=== PATIENT | female | born 1985 | race Caucasian/White ===

== ENCOUNTER 2023-03-05 09:04 | Emergency (ER) | payer OTHER ==
[2023-03-05] MEDS ORDERED: predniSONE 20 MG TAB ONE (09:32)
== END 2023-03-05 09:40 | disposition home or self-care (01) ==
LOC: NAV ERS 09:04
DX: B37.0 Candidal stomatitis (principal); R21 Rash and other nonspecific skin eruption; M79.7 Fibromyalgia; M19.90 Unspecified osteoarthritis, unspecified site; Z79.899 Other long term (current) drug therapy
CPT/HCPCS: 99282; J7512

== ENCOUNTER 2025-02-28 07:31 | Emergency (ER) | payer MEDICAID ==
[2025-02-28] MEDS ORDERED: Acetaminophen 325 MG TAB ONE (08:33)
== END 2025-02-28 09:20 | disposition home or self-care (01) ==
LOC: NAV ERS 07:31
DX: J02.9 Acute pharyngitis, unspecified (principal); R50.9 Fever, unspecified; R19.7 Diarrhea, unspecified; M79.7 Fibromyalgia
CPT/HCPCS: 87081; 87428; 87430; 99284; Q0162